=== PATIENT | female | born 1960 ===

== ENCOUNTER 2021-02-04 12:10 | Outpatient (CLI) | payer MEDICARE, SELFPAY ==
--- NOTE | 2021-02-04 12:20 | CT_ITS ---
WS: [id number] LDCT LUNG CANCER SCREENING TECHNIQUE: Noncontrast CT of the chest with coronal and sagittal reformatted images. CLINICAL INFORMATION: NICOTINE DEPENDENCE, CIGARETTES COMPARISON: None. DLP: 61.31 mGy.cm DIvol: 1.[address] scans at [facility] use at least one of these dose optimization techniques: automat ed exposure control; mA and/or kV adjustment per patient size (includes targeted exams where dose is matched to clinical indication); or iterative reconstruction. FINDINGS: No acute pulmonary infiltrates. No consolidation or pleural fluid. No suspicious pulmonary parenchyma l opacities. No mediastinal or hilar lymphadenopathy. No axillary lymphadenopathy. Cholecystectomy cl ips. A few calcified granulomas. CT/CT lung screening [id number] IMPRESSION: LUNG-RADS: 2-Benign Appearance or Behavior FOLLOW UP: 12 Month: Continue annual screening with LDCT
== END 2021-02-04 12:11 | disposition home or self-care (01) ==
LOC: RAD 12:14
PROVIDERS: Visit Provider Nurse Practitioner Family
DX: Z12.2 Encounter for screening for malignant neoplasm of respiratory organs (principal); F17.210 Nicotine dependence, cigarettes, uncomplicated
CPT/HCPCS: 71271

== ENCOUNTER 2021-02-15 10:10 | Outpatient (CLI) | payer MEDICARE, SELFPAY ==
--- NOTE | 2021-02-15 10:25 | FL_ITS ---
WS: [id number] ESOPHAGRAM TECHNIQUE: Double contrast examination was performed with thin and thick barium. Upright and EID imag es were obtained. CLINICAL INFORMATION: DYSPHAGIA COMPARISON: None. FINDINGS: Swallowing: No evidence of aspiration or penetration. Esophagus: Moderate esophageal dysmotility with delayed emptying on the upright and supine imaging. N o evidence of high-grade stricture or obstructing intraluminal mass. Evidence of reflux esophagitis d istal esophagus. Small esophageal hiatal hernia. Gastroesophageal reflux: Active reflux is visualized in the upright and supine positions to the upper thoracic esophagus. No difficulties with barium tablet. Fluoroscopy time: 4.1 minutes. FL/FL barium swallow [id number] IMPRESSION: 1. Moderate esophageal dysmotility with delayed emptying on the upright and [place]rien [place] imaging likely due to chronic reflux. 2. Evidence of reflux esophagitis distal esophagus with small esophageal hiata l hernia. 3. Moderate active reflux is visualized in the upright and supine positions to the mid and upper esophagus. 4. No evidence of aspiration or penetration.
== END 2021-02-15 10:11 | disposition home or self-care (01) ==
PROVIDERS: Visit Provider Surgery
DX: R13.10 Dysphagia, unspecified (principal); K21.9 Gastro-esophageal reflux disease without esophagitis
CPT/HCPCS: 74220

== ENCOUNTER 2021-02-15 10:19 | Outpatient (CLI) | payer MEDICARE, SELFPAY ==
--- NOTE | 2021-02-15 10:33 | XR_ITS ---
WS: [id number] ANKLE RIGHT TECHNIQUE: 3 views of the right ankle CLINICAL INFORMATION: RIGHT ANKLE PAIN COMPARISON: None. FINDINGS: Mild soft tissue edema about the ankle. Prior postoperative changes plate and screw fixation distal o ne third tibial shaft extending to the tibial plafond. Bony fusion of the ankle mortise with talocalc aneal fusion. Hypertrophic and degenerative changes at the ankle mortise. Osteopenia. No evidence of hardware loosening. No other significant findings. XR/XR ankle RT min 3V* [id number] IMPRESSION: 1. Prior extensive postoperative changes plate and screw fixation distal tibia l shaft extending to the tibial plafond with fusion of the ankle mortise with t alocalcaneal fusion. 2. No evidence of hardware loosening. 3. Hypertrophic and degenerative changes about the ankle fusion. 4. Osteopenia
== END 2021-02-15 10:20 | disposition home or self-care (01) ==
PROVIDERS: Visit Provider Nurse Practitioner Family
DX: M25.571 Pain in right ankle and joints of right foot (principal); M85.871 Other specified disorders of bone density and structure, right ankle and foot
CPT/HCPCS: 73610

== ENCOUNTER → 2021-03-08 11:48 | Outpatient (BNVA) | payer MEDICARE, SELFPAY | PROVIDERS: Visit Provider Surgery | DX: Z01.812 Encounter for preprocedural laboratory examination (principal); Z20.822 Contact with and (suspected) exposure to COVID-19 | CPT/HCPCS: 87635 ==